=== PATIENT | male | born 1960 | race Caucasian/White ===

== ENCOUNTER 2022-06-21 15:38 | Outpatient (CLI) | payer OTHER, SELFPAY ==
[2022-06-21 19:37] LABS: Alanine Aminotransferase 42 U/L (6-50); Albumin Level 4.5 g/dL (3.5-5.1); Alkaline Phosphatase 95 U/L (38-126); Anion Gap 11 mmol/L (8-16); Aspartate Amino Transferase 34 U/L (17-59); Bilirubin,Total 0.7 mg/dL (0.2-1.3); Blood Urea Nitrogen 17 mg/dL (9-20); Calcium 8.9 mg/dL (8.4-10.2); Carbon Dioxide 22 mmol/L (22-30); Chloride 103 mmol/L (98-107); Cholesterol 124 mg/dL (0-200); Estimated Glomerular Filt Rate > 60; Glucose 110 mg/dL (65-110); HDL Direct 39 mg/dL; Potassium 3.9 mmol/L (3.4-5.0); Sodium 136 mmol/L (137-145); Triglycerides 170 mg/dL (<150)
[2022-06-21 19:51] LABS: LDL Cholesterol Direct 61 mg/dL
[2022-06-21 20:06] LABS: Prostate Specific Antigen 0.4 ng/mL (< OR = 4.0)
[2022-06-21 20:09] LABS: Hemoglobin A1C 8.7 % (<5.7)
[2022-06-21 22:12] LABS: MALB Creatinine Ratio 12.3 mg/g (0-30); Microalbumin Urine Random 16.6 mg/L (0-16.7)
== END 2022-06-21 15:39 | disposition home or self-care (01) ==
PROVIDERS: PCP Family Medicine; Visit Provider Family Medicine
DX: R53.83 Other fatigue (principal); Z12.5 Encounter for screening for malignant neoplasm of prostate; Z13.220 Encounter for screening for lipoid disorders; E11.65 Type 2 diabetes mellitus with hyperglycemia
CPT/HCPCS: 36415; 80053; 80061; 82043; 83036; 84153; G0103

== ENCOUNTER 2022-09-26 08:04 | Outpatient (CLI) | payer OTHER, SELFPAY ==
[2022-09-26 20:46] LABS: Creatinine Urine 89.9 mg/dL
[2022-09-26 20:51] LABS: MALB Creatinine Ratio 9.6 mg/g (0-30); Microalbumin Urine Random 8.6 mg/L (0-16.7)
[2022-09-26 21:13] LABS: Hemoglobin A1C 8.1 % (<5.7)
== END 2022-09-26 08:05 | disposition home or self-care (01) ==
LOC: ANHGOSHLAB 08:06
PROVIDERS: PCP Family Medicine; Visit Provider Family Medicine
DX: E11.9 Type 2 diabetes mellitus without complications (principal)
CPT/HCPCS: 36415; 82043; 83036

== ENCOUNTER 2023-09-23 15:36 | Outpatient (CLI) | payer OTHER, SELFPAY ==
[2023-09-23 18:43] LABS: Alanine Aminotransferase 34 U/L (6-50); Alkaline Phosphatase 93 U/L (38-126); Anion Gap 10 mmol/L (8-16); Aspartate Amino Transferase 36 U/L (17-59); Bilirubin,Total 0.6 mg/dL (0.2-1.3); Blood Urea Nitrogen 18 mg/dL (9-20); Calcium 9.1 mg/dL (8.4-10.2); Carbon Dioxide 24 mmol/L (22-30); Chloride 101 mmol/L (98-107); Cholesterol 121 mg/dL (0-200); Estimated Glomerular Filt Rate > 60; Glucose 232 mg/dL (65-110); HDL Direct 42 mg/dL; Potassium 4.2 mmol/L (3.4-5.0); Sodium 135 mmol/L (137-145); Triglycerides 183 mg/dL (<150)
[2023-09-23 18:54] LABS: LDL Cholesterol Direct 65 mg/dL
[2023-09-23 19:13] LABS: Prostate Specific Antigen 0.3 ng/mL (< OR = 4.0)
[2023-09-23 19:24] LABS: Basophils Absolute Auto 0.1 K/mm3 (0.0-0.1); Basophils Percent Auto 0.5 % (0.2-1.2); Eosinophils Absolute Auto 0.1 K/mm3 (0-0.3); Eosinophils Percent Auto 1.2 % (0-4.4); Hematocrit 49.9 % (42.0-52.0); Hemoglobin 16.4 g/dL (14.0-18.0); Immature Granulocyte Absolute 0.03 K/mm3 (0.00-0.031); Immature Granulocyte Percent A 0.3 % (0-0.5); Lymphocytes Absolute Auto 2.63 K/mm3 (0.9-3.2); Lymphocytes Percent Auto 26.2 % (18.3-44.2); Mean Corpuscular HGB Conc 32.9 g/dl (32-36); Mean Corpuscular Hemoglobin 28.5 pg (26-34); Mean Corpuscular Volume 86.6 fl (80-100); Mean Platelet Volume 10.1 fl (7.4-10.4); Monocytes Absolute Auto 0.6 K/mm3 (0.1-0.6); Monocytes Percent Auto 5.8 % (2.6-8.5); Neutrophils Absolute Auto 6.6 K/mm3 (1.3-6.7); Platelet Count Result 226 k/mm3 (150-375); Red Blood Count 5.76 M/mm3 (4.6-6.20); Red Cell Distribution Width 14.1 % (11.5-14.5)
[2023-09-23 19:28] LABS: MALB Creatinine Ratio 8.8 mg/g (0-30); Microalbumin Urine Random 17.4 mg/L (0-16.7)
[2023-09-23 21:25] LABS: Hemoglobin A1C 7.2 % (<5.7)
== END 2023-09-23 15:37 | disposition home or self-care (01) ==
LOC: ANHGOSHLAB 15:37
PROVIDERS: PCP Family Medicine; Visit Provider Family Medicine
DX: R53.83 Other fatigue (principal); Z13.228 Encounter for screening for other metabolic disorders; Z13.220 Encounter for screening for lipoid disorders; Z12.5 Encounter for screening for malignant neoplasm of prostate; E11.9 Type 2 diabetes mellitus without complications
CPT/HCPCS: 36415; 80053; 80061; 82043; 83036; 84153; 85025; G0103

== ENCOUNTER 2024-05-12 12:39 | Outpatient (CLI) | payer OTHER, SELFPAY ==
--- NOTE | ~2024-05-12 | CT_ITS ---
EXAMINATION: CT diagnostic chest w con DATE: 05/12/2024 13:12 INDICATION: Myasthenia Gravis TECHNIQUE: Computed tomography (CT) of the chest was performed with 100 mL Omnipaque-350 intravenous contrast. Additional 3D reconstructions utilizing coronal maximum intensity projection (MIP) were per formed. Automated exposure control and iterative reconstruction technique were employed. The dose-roberto gth product was 391.78 mGy-cm. COMPARISON: None FINDINGS: Calcified left upper lobe nodule along with calcified left hilar and mediastinal lymph nodes consiste nt with old granulomatous disease. No other suspicious pulmonary nodules, pneumonia, pulmonary edema or pleural effusion. Heart size is normal. Atherosclerotic coronary artery calcifications. No pericar dial effusion. Thoracic aorta is normal in caliber with no dissection. 4.3 x 2.3 x 2.8 cm anterior me diastinal mass situated along the anterior margin of the aortic root and right atrial appendage. No o ther pathologically enlarged thoracic lymphadenopathy. Mild diffuse hepatic steatosis. Visualized up per abdomen is otherwise unremarkable. Moderate thoracic spondylosis. IMPRESSION: 1. 4.3 x 2.3 x 2.8 cm anterior mediastinal mass which given the appearance and provided history of my asthenia gravis would be most consistent with thymoma. Less likely differential would include thymic hyperplasia, enlarged lymph nodes such as in the setting of lymphoma or metastatic disease and terato ma. Reviewed, dictated and finalized at location B. IMPRESSION: 1. 4.3 x 2.3 x 2.8 cm anterior mediastinal mass which given the appearance and provided history of myasthenia gravis would be most consistent with thymoma. Le ss likely differential would include thymic hyperplasia, enlarged lymph nodes s uch as in the setting of lymphoma or metastatic disease and teratoma.
--- NOTE | ~2024-05-12 | MR_ITS ---
EXAMINATION: MR brain/brain stem wo con DATE: 05/12/2024 13:42 INDICATION: Personal history of other healed physical injury. TECHNIQUE: Magnetic resonance imaging (MRI) of the brain and brainstem was performed without intraven ous contrast. COMPARISON: None. FINDINGS: There are scattered areas of nonspecific increased T2-weighted signal intensity in the cere bral white matter, which is within normal limits for the patient's age. There is no intracranial hemo rrhage, acute infarction, or abnormal intracranial mass lesion. The ventricles are normal in size. Th e orbits are normal. There is mucosal thickening in the paranasal sinuses. The mastoid air cells are normal. IMPRESSION: 1. Normal aging brain. Reviewed, dictated and finalized at location A. IMPRESSION: 1. Normal aging brain.
[2024-05-12 13:05] LABS: Estimated Glomerular Filt Rate > 60
== END 2024-05-12 12:40 | disposition home or self-care (01) ==
PROVIDERS: PCP Psychiatry & Neurology Neurology; Visit Provider Psychiatry & Neurology Neurology
DX: G70.00 Myasthenia gravis without (acute) exacerbation (principal); Z87.828 Personal history of other (healed) physical injury and trauma
CPT/HCPCS: 70551; 71260; Q9967